=== PATIENT | male | born 1955 | race Caucasian/White ===

== ENCOUNTER → 2025-02-19 07:53 | Outpatient (BNVA) | payer MEDICARE, SELFPAY | PROVIDERS: Visit Provider Dermatology | DX: L82.1 Other seborrheic keratosis (principal); D18.01 Hemangioma of skin and subcutaneous tissue; C44.41 Basal cell carcinoma of skin of scalp and neck; D48.5 Neoplasm of uncertain behavior of skin; L57.0 Actinic keratosis | CPT/HCPCS: 11102; 12042; 17000; 17311; 99203 ==

== ENCOUNTER → 2025-02-28 11:37 | Outpatient (BNVA) | payer MEDICARE, SELFPAY | PROVIDERS: Visit Provider Dermatology | DX: Z48.02 Encounter for removal of sutures (principal); C44.719 Basal cell carcinoma of skin of left lower limb, including hip; D03.4 Melanoma in situ of scalp and neck; D48.5 Neoplasm of uncertain behavior of skin | CPT/HCPCS: 11102; 99213 ==

== ENCOUNTER → 2025-04-08 07:51 | Outpatient (BNVA) | payer MEDICARE, SELFPAY | PROVIDERS: Visit Provider Dermatology | DX: C44.91 Basal cell carcinoma of skin, unspecified (principal); Z08 Encounter for follow-up examination after completed treatment for malignant neoplasm; Z86.006 Personal history of melanoma in-situ; C44.612 Basal cell carcinoma of skin of right upper limb, including shoulder; L57.0 Actinic keratosis | CPT/HCPCS: 17000; 17262; 99213 ==

== ENCOUNTER → 2025-08-05 08:05 | Outpatient (BNVA) | payer MEDICARE, SELFPAY | PROVIDERS: Visit Provider Dermatology | DX: D18.01 Hemangioma of skin and subcutaneous tissue (principal); L82.1 Other seborrheic keratosis; Z08 Encounter for follow-up examination after completed treatment for malignant neoplasm; Z86.006 Personal history of melanoma in-situ; Z85.828 Personal history of other malignant neoplasm of skin; L57.0 Actinic keratosis | CPT/HCPCS: 17000; 99213 ==

== ENCOUNTER 2025-08-08 08:22 | Oncology outpatient (recurring) (ONCR) | payer MEDICARE, SELFPAY | END 2025-08-16 23:59 | disposition home or self-care (01) | PROVIDERS: Visit Provider Internal Medicine Medical Oncology | DX: D48.5 Neoplasm of uncertain behavior of skin (principal) | CPT/HCPCS: 11102 ==

== ENCOUNTER → 2025-09-09 15:09 | Outpatient (BNVA) | payer MEDICARE, SELFPAY | PROVIDERS: Visit Provider Dermatology | DX: C44.01 Basal cell carcinoma of skin of lip (principal) | CPT/HCPCS: 99212 ==

== ENCOUNTER 2025-09-11 07:57 | Oncology outpatient (recurring) (ONCR) | payer MEDICARE, SELFPAY ==
[2025-09-11 08:24] LABS: Hematocrit 53.2 % (37-53); Hemoglobin 17.80 g/dL (11.27-16.99); Mean Corpuscular HGB Conc 33.5 g/dL (30-55); Mean Corpuscular Hemoglobin 30.6 pg (27-33); Mean Corpuscular Volume 91.4 fl (82-101); Nucleated Red Blood Cells % 0 %; Platelet Count 186 10^3/cmm (157-399); Red Blood Count 5.82 10^6/uL (3.85-5.65); White Blood Count 6.82 10^3/uL (3.29-11.43)
[2025-09-11 08:51] LABS: Alanine Aminotransferase 28 U/L (0-41); Albumin Level 4.0 g/dL (3.5-5.2); Alkaline Phosphatase 92 U/L (40-130); Anion Gap 11.5 (5-19); Aspartate Amino Transferase 24 U/L (0-40); Blood Urea Nitrogen 13 mg/dL (8-23); Calcium 9.1 mg/dL (8.5-10.5); Carbon Dioxide 29 mmol/L (22-29); Chloride 108 mmol/L (98-107); Globulin 2.5 g/dL (1.3-4.6); Glucose 150 mg/dL (65-115); Osmolality Calculated 301 mOsm/kg (285-295); Potassium 4.5 mmol/L (3.5-5.1); Sodium 144 mmol/L (136-145); Total Protein 6.5 g/dL (6.6-8.7)
[2025-09-18 13:05] LABS: CALR Exon 9 Mutation NOT DETECTED (NOT DETECTED); JAK2 Exon 12 Mutation NOT DETECTED (NOT DETECTED); MPL Exon 10 Mutation NOT DETECTED (NOT DETECTED); Specimen Source blood
== END 2025-09-15 23:59 | disposition home or self-care (01) ==
PROVIDERS: Visit Provider Internal Medicine Medical Oncology
DX: D45 Polycythemia vera; Z53.9 Procedure and treatment not carried out, unspecified reason
CPT/HCPCS: 36415; 80053; 81219; 81270; 81279; 81339; 85025